=== PATIENT | male | born 1995 | race American Indian/Alaskan Native ===

== ENCOUNTER 2019-07-13 13:05 | Emergency (ER) | payer SELFPAY ==
[2019-07-13 13:13] VITALS: BP 128/73
--- NOTE | 2019-07-13 14:44 | Emergency Department Report ---
Chief Complaint: Fever Stated Complaint: FEVER, HEADACHES Time Seen by Provider: 07/13/19 14:15 - HPI History of Present Illness: 23 y o male who presents to ED with complaining of throat pain 4 days. Patient describes pain as throbbing in nature, 8 out of 10 intensity, nonradiating, localized to his throat. Patient admits dry, nonproductive cough. Patient admits fever for the first 2 days but not at the moment. Patient denies nausea/vomiting/abdominal pain/shortness of breath/chest pain/headache - ROS Review of Systems: : All other systems reviewed and negative - Exam Vital Signs: Vital Signs 07/13/19 07/13/19 13:12 14:07 Temperature 100.7 F H 100.7 F H Pulse Rate 122 H 120 H Respiratory 18 20 Rate Blood Pressure 128/73 Blood Pressure 128/73 [Right] O2 Sat by Pulse 95 95 Oximetry Physical Exam: ENT: Patent airways, tonsillitis with erythematous, swollen and exudative. MSE screening note: Focused history and physical exam performed. Due to findings the following was ordered: ED Medical Decision Making - Medical Decision Making 23-year-old male presents with acute bacterial tonsillitis. Prescriptions were given to patient for treatment. Discuss follow-up primary care physician in 3-5 days. Vital signs are normal patient is in no acute distress. ED Disposition for MSE Clinical Impression: Acute bacterial tonsillitis Disposition: MED SCREENING EXAM-LEFT Is pt being admited?: No Does the pt Need Aspirin: No Condition: Stable Instructions: Strep Throat (ED), Tonsillitis (ED) Additional Instructions: Make sure to follow up with the primary care physician as discussed. Take all your medications as you've been prescribed. If you have any worsening symptoms or develop new symptoms please return to ED imme Prescriptions: Nystas/Diphen/Xyl Visc/Mylanta [Magic Mouthwash] 15 ml MM Q6H PRN #120 ml PRN Reason: Sore Throat Ibuprofen [Motrin 800 MG tab] 800 mg PO Q8HR PRN #30 tablet PRN Reason: Pain Amoxicillin [Trimox CAP] 500 mg PO Q8H 7 Days #21 capsule Referrals: PRIMARY CARE, [Primary Care Provider] - 3-5 Days [facility] [Outside] - 3-5 Days [facility] [Outside] - 3-5 Days Forms: Accompanied Note, Work/School Release Form(ED) Time of Disposition: 14:41
== END 2019-07-13 14:56 | disposition left against medical advice (07) ==
LOC: ED 13:05
DX: J03.90 Acute tonsillitis, unspecified (principal)
CPT/HCPCS: 99281

== ENCOUNTER 2020-09-17 14:51 | Emergency (ER) | payer SELFPAY ==
[2020-09-17 15:05] VITALS: BP 144/79
--- NOTE | 2020-09-17 15:32 | Emergency Department Report ---
Chief Complaint: Urogenital-Male Stated Complaint: PAIN/DISCHARGE/ DECOLORATION IN URIN - HPI History of Present Illness: 25-year-old -[place] male presents to the emergency room stating he started having penile discharge on Sunday. Patient states he had intercourse unprotected on Sunday. He reports that he talked to his girlfriend and she went and got checked and was told she has trichomonas. Patient denies any testicular pain denies any dysuria denies any abdominal pain no nausea no vomiting no back pain. Denies any fever or chills. - Exam Vital Signs: Vital Signs 09/17/20 15:00 Temperature 98.1 F Pulse Rate 77 Respiratory 16 Rate Blood Pressure 144/79 O2 Sat by Pulse 96 Oximetry Physical Exam: Patient is alert and oriented x3 no acute distress nontoxic in appearance Nonlabored breathing Rate is normal Ambulatory without difficulties MSE screening note: Focused history and physical exam performed. Due to findings the following was ordered: 25-year-old -[place] male presents to the emergency room stating he started having penile discharge on Sunday. Patient states he had intercourse unprotected on Sunday. He reports that he talked to his girlfriend and she went and got checked and was told she has trichomonas. Patient denies any testicular pain denies any dysuria denies any abdominal pain no nausea no vomiting no back pain. Denies any fever or chills. Referral given to patient for health department and other community resources. ED Disposition for MSE Disposition: MED SCREENING EXAM-LEFT Is pt being admited?: No Does the pt Need Aspirin: No Condition: Stable Additional Instructions: Follow-up at the health clinic or other community resources for STD evaluation and treatment. Referrals: [facility] [Outside] - 3-5 Days
== END 2020-09-17 17:18 | disposition left against medical advice (07) ==
LOC: ED 14:51
DX: R36.9 Urethral discharge, unspecified (principal); Z53.21 Procedure and treatment not carried out due to patient leaving prior to being seen by health care provider